=== PATIENT | male | born 1960 | race Hispanic/Latino ===

== ENCOUNTER 2017-09-22 22:06 | Emergency (ER) | payer MEDICARE, OTHER ==
[2017-09-22 22:06] VITALS: BMI 21.7
[2017-09-23 00:11] LABS: ALB/GLOB RATIO 1.2 (1.0-2.1); ALBUMIN 4.7 g/dL (3.5-5.0); ALT/SGPT 19 U/L (21-72); AST/SGOT 31 U/L (17-59); BLOOD UREA NITROGEN 27 mg/dL (9-20); CALCIUM 9.6 mg/dl (8.6-10.4); GFR AFRICAN-AMERICAN > 60; GFR NON-AFRICAN AMERICAN > 60; LIPASE 50 U/L (23-300)
[2017-09-23 00:17] LABS: BASO % 0.3 % (0.0-2.0); EOS # 0.2 K/uL (0.0-0.7); EOS % 1.6 % (0.0-4.0); HEMOGLOBIN 14.6 g/dL (12.0-18.0); LYMPH # 1.6 K/uL (1.0-4.3); MEAN CELL VOLUME 90.4 fL (80.0-94.0); MEAN CORPUSCULAR HEMOGLOBIN 30.9 pg (27.0-31.0); MEAN CORPUSCULAR HGB CONC 34.1 g/dL (33.0-37.0); MEAN PLATELET VOLUME 8.5 fL (7.2-11.7); MONO # 0.5 K/uL (0.0-0.8); MONO % 5.1 % (0.0-10.0); NEUT # 7.4 K/uL (1.8-7.0); NRBC % 0.1 % (0.0-2.0); RBC 4.72 Mil/uL (4.40-5.90); RED CELL DISTRIBUTION WIDTH 12.8 % (11.5-14.5); WHITE BLOOD COUNT 9.7 K/uL (4.8-10.8)
--- NOTE | 2017-09-23 00:41 | C.PDOC ---
History Of Present Illness 57 y/o male presents to the ED for constipation. Patient states he hasn't had a bowel movement in last 4 days as well as unable to urinate in the past 6 hours. He did two at home enemas however the fluid came back out immediately with no bowel movement. He denies any history of urinary tension. PMD: Raulito Damon Time Seen by Provider: 09/22/17 22:51 Chief Complaint (Nursing): GI Problem History Per: Patient History/Exam Limitations: no limitations Onset/Duration Of Symptoms: Days (x4) Current Symptoms Are (Timing): Still Present Associated Symptoms: Other (not able to urinate in the past 6 hours) Last Bowel Movement: Days Ago Recent travel outside of the [place]: No Past Medical History Vital Signs: Last Vital Signs Temp 98 F 09/22/17 22:37 Pulse 105 H 09/22/17 22:37 Resp 20 09/22/17 22:37 BP 70/49 L 09/22/17 22:37 Pulse Ox 100 09/23/17 00:41 - Medical History PMH: Colonic Polyps, Hypothyroidism Denies: Chronic Kidney Disease Surgical History: No Surg Hx Family History: States: No Known Family Hx - Social History Hx Alcohol Use: No Hx Substance Use: No Review Of Systems Except As Marked, All Systems Reviewed And Found Negative. Gastrointestinal: Positive for: Constipation, Other (urinary retention) Physical Exam - Physical Exam Appears: Well, No Acute Distress Skin: Normal Color, Warm, Dry Head: Atraumatic, Normacephalic Eye(s): bilateral: Normal Inspection, PERRL, EOMI Nose: Normal Throat: Normal Neck: Normal Cardiovascular: Rhythm Regular, No Murmur Respiratory: Normal Breath Sounds, No Decreased Breath Sounds Gastrointestinal/Abdominal: Normal Exam, No Tenderness (suprapubic), Other ( belly is benign) Back: Normal Inspection, No CVA Tenderness, No Vertebral Tenderness Extremity: Normal ROM, No Pedal Edema Neurological/Psych: Oriented x3 ED Course And Treatment - Laboratory Results Result Diagrams: 09/22/17 23:56 09/22/17 23:56 Lab Interpretation: Normal O2 Sat by Pulse Oximetry: 100 (RA) Pulse Ox Interpretation: Normal - Radiology CXR: Interpreted by Me CXR Interpretation: Yes: No Acute Disease - Other Rad abd x 2 X-Ray: Interpreted by Me (+FOS) Reevaluation Time: 00:39 Reassessment Condition: Improved Medical Decision Making Medical Decision Making: bladder scan <200 cc normal renal fxn + constip Disposition Doctor Will See Patient In The: Office Counseled Patient/Family Regarding: Studies Performed, Diagnosis - Disposition Referrals: Jacque Cabezas MD [Medical Doctor] - Disposition: HOME/ ROUTINE Disposition Time: 00:40 Condition: GOOD Additional Instructions: drink a laxative now re-eval after using the bathroom 2-3 times avoid constipating foods laxatives as needed. Instructions: Constipation, Adult (DC) Forms: [employer] (Hebrew) - Clinical Impression Clinical Impression: Generalized colicky abdominal pain
[2017-09-23] MEDS ORDERED: Magnesium Citrate Oral SOL (300 ml) PO ONE (00:42)
[2017-09-23] MEDS ORDERED: Magnesium Citrate Oral SOL (300 ml) ONE (00:56)
[2017-09-23 01:17] VITALS: BP 90/51; PULSE 62; RESP 18; TEMP 98; O2SAT 97
--- NOTE | 2017-09-23 09:36 | RAD ---
PROCEDURE: Radiographs of the chest and abdomen (obstructive series) HISTORY: abd pain COMPARISON: No prior. TECHNIQUE: AP radiograph of the chest, with upright and supine radiographs of the abdomen. FINDINGS: CHEST: Lungs: Clear. Cardiovascular: Normal size heart. No pulmonary vascular congestion. Pleura: No pleural fluid. No pneumothorax. Other findings: . Small elliptical shaped well-circumscribed nodular density overlying the left posterior 8th rib consistent with nipple shadow artifact. ABDOMEN AND PELVIS: Bowel: No evidence of mechanical obstruction. Moderate amount of stool seen within the the large bowel consistent with constipation Free air: None. Bones: Unremarkable. Other findings: None. IMPRESSION: Unremarkable radiographs of chest and abdomen. No evidence of mechanical bowel obstruction. Findings consistent with mild constipation
== END 2017-09-23 01:29 | disposition home or self-care (01) ==
LOC: C.ER 22:06
DX: R10.84 Generalized abdominal pain (principal)

== ENCOUNTER 2018-09-04 11:11 | Outpatient (CLI) | payer MEDICARE, OTHER | END 2018-09-04 11:12 | disposition home or self-care (01) | LOC: C.CTH 11:11 | DX: M54.5 Low back pain (principal); M47.27 Other spondylosis with radiculopathy, lumbosacral region ==